=== PATIENT | female | born 1975 | race Two or more races ===

== ENCOUNTER 2023-01-17 08:07 | Emergency (ER) | payer OTHER ==
[~2023-01-17] VITALS: Ht 162.6 cm; Wt 86.6 kg
[2023-01-17] MEDS ORDERED: ZESTRIL20 MG PO (08:41)
== END 2023-01-17 10:03 | disposition home or self-care (01) ==
LOC: ER 08:07
DX: I10 Essential (primary) hypertension (principal); Z88.6 Allergy status to analgesic agent; Z88.8 Allergy status to other drugs, medicaments and biological substances